=== PATIENT | male | born 1950 | race Caucasian/White ===

== ENCOUNTER 2020-04-21 12:00 | Inpatient (IN) | payer MEDICARE, OTHER ==
[~2020-04-21] VITALS: Ht 181.6 cm; Wt 103.7 kg
[2020-05-15 07:28] LABS: HEMATOCRIT 43.2 % (42.0-52.0); HEMOGLOBIN 14.4 g/dl (13.5-18.0); MEAN CELL VOLUME 85 fl (80.0-100.0); MEAN CORPUSCULAR HEMOGLOBIN 28 pg (27.0-31.0); MEAN CORPUSCULAR HGB CONC 33 g/dl (33.0-37.0); MEAN PLATELET VOLUME 9.3 fl (7.4-10.4); PLATELET COUNT 182 K/mm3 (130-400); RED BLOOD COUNT 5.08 M/mm3 (4.20-5.60); REDCELL DISTRIBUTION WIDTH-CV 13.7 % (11.5-14.5)
[2020-05-15 07:43] LABS: ALBUMIN 3.9 gm/dL (3.5-5.0); BILIRUBIN,TOTAL 0.4 mg/dL (0.0-1.0); CALCIUM 9.1 mg/dL (8.4-10.2); CREATININE, serum 1.01 (0.66-1.25); POTASSIUM 4.4 mmol/L (3.4-5.0); TOTAL PROTEIN 6.8 gm/dL (6.4-8.2)
[2020-05-16] VITALS (12 sets, daily range): BP systolic 101–139; BP diastolic 41–76; PULSE 62–80; TEMP 97.5–98.6
[2020-05-16] MEDS ORDERED: COZAAR 50MG50 MG/TAB PO (05:58)
[2020-05-16] MEDS ORDERED: BRILINTA90 MG PO (05:59)
[2020-05-16] MEDS ORDERED: GLUCOPHAGE1000 MG PO ×2 (05:59→06:03)
[2020-05-16] MEDS ORDERED: LIPITOR 10MG10 MG PO (06:00)
[2020-05-16] MEDS ORDERED: ASPIRIN E.C. 8181 MG PO (06:00)
[2020-05-16] MEDS ORDERED: NITROSTAT0.4 MG/TAB SL (06:00)
[2020-05-16] MEDS ORDERED: GLUCOSAMINE SUL1 TAB PO (06:01)
[2020-05-16] MEDS ORDERED: BASAGLAR K100 UNIT/1 SQ (06:01)
[2020-05-16] MEDS ORDERED: OZEMPIC0.25 MG/0. SQ (06:02)
[2020-05-16] MEDS ORDERED: VIAGRA 25MG TAB25 MG PO (06:02)
[2020-05-16] MEDS ORDERED: LOPRESSOR 225 MG/TAB PO ×2 (06:02→06:04)
--- NOTE | 2020-05-16 14:00 | NUR ---
Patient doing well post op. Vss. Lap site edges well approximated. Butterfield to dd with tea colored output. Tolerating clears. Ivf per orders. at bedside.
--- NOTE | 2020-05-16 16:00 | NUR ---
Patient assisted out of bed. We ambulated halls. He did well, does report neuropathy making his gait unsteady at times. Vss on room air. Butterfield remainds to DD with teacolored output. IVF continue. Duane bahena.
--- NOTE | 2020-05-16 19:25 | NUR ---
Patient resting in bed. Him and his ambulated halls again. Pain minimal. Butterfield output remains tea colored. scds. Bedside report to charlene Rn
--- NOTE | 2020-05-16 21:00 | NUR ---
PT IN BED. IS ALERT AND ORIENTED X4. HAS IVF INFUSING TO LEFT WRIST WITHOUT PROBLEM. HAS SL TO LEFT HAND. LOYOLA CATHETER WITH TEA COLORED URINE. ABDOMEN DISTENDED WITH LAP SITES X6 GLUED AND DRY. REPORTS PAIN IS "INSIGNIFICANT".
[2020-05-17 03:12] VITALS: BP 101/44; PULSE 81; TEMP 98.2
--- NOTE | 2020-05-17 04:00 | NUR ---
OFFERS NO COMPLAINTS. URINE IS LIGHT TEA COLORED. IVF CONTINUE.
[2020-05-17 06:04] LABS: HEMATOCRIT 34.7 % (42.0-52.0); HEMOGLOBIN 11.6 g/dl (13.5-18.0)
[2020-05-17 06:16] LABS: CALCIUM 7.9 mg/dL (8.4-10.2); CREATININE, serum 0.93 (0.66-1.25); POTASSIUM 4.1 mmol/L (3.4-5.0)
[2020-05-17 07:58] VITALS: BP 115/88; PULSE 83; TEMP 98.2
--- NOTE | 2020-05-17 08:00 | NUR ---
Patient resting in bed at this time. Patient is alert and oriented answers questions appropriately. Butterfield in place per order draining clear peach colored urine with infrequent sediment. Patient denies pain or needs, call light within reach.
[2020-05-17 11:46] VITALS: BP 130/58; PULSE 73; TEMP 98.7
--- NOTE | 2020-05-17 12:01 | NUR ---
Flare Maker offered prayer and support with patient while spouse was in room.
--- NOTE | 2020-05-17 12:10 | NUR ---
SW met with patient and to conduct intake evaluation. [place] [facility] with with Destiny Larios (P# [phone]). Patient's DPOA is listed as his Destiny with secondary agent being son Juan Larios (P# [phone]) and tertiary agent son Luis Larios (P# [phone]). Patient's PCP is Dr. Aris Alvarenga in [place], and he uses [facility] in [place] for medications. Patient denies needing assistance with ADLs and uses no DME. Patient denies needing help affording his medications. Patient plans to return home with his , who will provide transportation. Patient denies questions or concerns at this time. Patient will discharge home today 05/17. There are no other needs at this time.
--- NOTE | 2020-05-17 13:15 | NUR ---
Discharge teaching completed with patient and . Education provided on leg bag use, changing bags, bag emptying and cleaning, and stat lock use. Discussed discharge instructions, medications, and making follow up appointment. Questions asked and answered. Patient and verbalized understanding. INT removed, catheter intact, hemostasis achieved. Patient dressed and gethered belongings, escorted to ED entrance where he entered a private vehicle.
== END 2020-05-17 13:15 | disposition home or self-care (01) | DRG 707 ==
LOC: INPTSU 05-16 05:23 → SURG 05-16 07:30
PROVIDERS: ADMIT Urology
PROC: 07TC4ZZ Resection of Pelvis Lymphatic, Percutaneous Endoscopic Approach (ICD-10-PCS; 2020-05-16)
PROC: 8E0W4CZ Robotic Assisted Procedure of Trunk Region, Percutaneous Endoscopic Approach (ICD-10-PCS; 2020-05-16)
PROC: 0VT04ZZ Resection of Prostate, Percutaneous Endoscopic Approach (ICD-10-PCS; principal; 2020-05-16 07:30)
DX: C61 Malignant neoplasm of prostate (principal); I42.2 Other hypertrophic cardiomyopathy; I25.10 Atherosclerotic heart disease of native coronary artery without angina pectoris; E11.40 Type 2 diabetes mellitus with diabetic neuropathy, unspecified; I10 Essential (primary) hypertension; Z79.82 Long term (current) use of aspirin; Z88.8 Allergy status to other drugs, medicaments and biological substances
CPT/HCPCS: A4314; J0330; J0690; J1100; J1170; J1815; J1885; J2250; J2370; J2405; J2704; J2765; J3010; J7030; J7120